=== PATIENT | female | born 1975 | race Caucasian/White ===

== ENCOUNTER 2016-09-07 19:40 | Emergency (ER) | payer OTHER | END 2016-09-08 00:33 | disposition home or self-care (01) | LOC: ER1 19:40 | DX: S39.012A Strain of muscle, fascia and tendon of lower back, initial encounter (principal); J01.90 Acute sinusitis, unspecified; E78.5 Hyperlipidemia, unspecified; M81.0 Age-related osteoporosis without current pathological fracture; F17.210 Nicotine dependence, cigarettes, uncomplicated; Z88.1 Allergy status to other antibiotic agents; Z88.8 Allergy status to other drugs, medicaments and biological substances; Z79.899 Other long term (current) drug therapy; W18.30XA Fall on same level, unspecified, initial encounter; Y93.01 Activity, walking, marching and hiking; Y92.000 Kitchen of unspecified non-institutional (private) residence as the place of occurrence of the external cause | CPT/HCPCS: 96372; 99283; J3360 ==